=== PATIENT | female | born 1950 | race Caucasian/White ===

== ENCOUNTER → 2023-08-02 11:51 | Outpatient (CLI) | payer MEDICARE, MEDICAID, SELFPAY ==
--- NOTE | 2023-08-02 | DI.US.S_ITS ---
PROCEDURE: US PERIPH VENOUS LOW EXTREM LT INDICATIONS: LEFT FOOT AND LEG PAIN, SWELLING TECHNIQUE: Real-time imaging, as well as color and pulse Doppler interrogation, were performed of the lower extremity deep veins from the inguinal ligament to the popliteal fossa, with documentation of the visualized calf veins. COMPARISON: None. FINDINGS: The common femoral, femoral, popliteal, and the visualized calf veins are normally compressible, and free of intraluminal thrombus. Color and pulse Doppler demonstrate normal phasic intraluminal flow. There is normal augmentation response to distal compression maneuver. IMPRESSION: No findings of lower extremity deep venous thrombosis. Dictated by: Jesús Mejía M.D. on 08/02/2023 at 13:27 Approved by: Jesús Mejía M.D. on 08/02/2023 at 13:27
== END ==
PROVIDERS: PCP Family Medicine; Referring Provider Family Medicine; Visit Provider Family Medicine
DX: M79.672 Pain in left foot (principal); R22.42 Localized swelling, mass and lump, left lower limb
CPT/HCPCS: 93971

== ENCOUNTER 2024-10-26 13:49 | Emergency (ER) | payer MEDICARE, MEDICAID, SELFPAY ==
[2024-10-26 13:55] VITALS: BP 161/84; PULSE 100; RESP 16; TEMP 36.4; O2SAT 97; BMI 29.9
[2024-10-26] MEDS: COLCHICINE 0.6 MG TABLET 1.2 MG PO (14:41)
[2024-10-26] MEDS: cephALEXin 250 MG CAPSULE 500 MG PO (14:41)
[2024-10-26 14:43] VITALS: BP 179/87; PULSE 83; RESP 16; O2SAT 98
--- NOTE | 2024-10-26 14:47 | ED.EXTPRO ---
HPI - Extremity Problem <Radha Pearce PA-C - Last Filed: 10/26/24 15:02> General Chief complaint: Extremity Problem,Nontraumatic Stated complaint: px in LLE redness and swelling Time Seen by Provider: 10/26/24 14:20 Source: patient Mode of arrival: Family Vehicle History of Present Illness HPI Narrative: 74-year-old woman with a history of hypothyroid presents with concern for pain redness and swelling of her left toe joint. Patient states her symptoms started Sunday night she says she woke up in the middle of the night and she realized she had pain in her toe at the base of her great toe. Since that time the pain has persisted and worsened she says that it is sensitive to very light touch and the sheets have been bothering her at night with any pressure on the area. She noticed the redness seemed to be increasing and was evaluated by EMS today on [facility] where she lives and was told she should come to the emergency department here in [place] for further evaluation to rule out a blood infection. Patient denies any fevers chills nausea vomiting fatigue and states she has been in her usual state of health other than the pain in her left great toe joint. She denies any history of gout. She states she does sometimes eat fish especially salmon and does eat meats but does not remember specifically eating a lot of either of these recently. She does not drink alcohol. She denies any injury to this toe although notes that last week when she was stretching a couple of different times it popped she says this was not painful at all when it happened. Related Data Home Medications Medication Instructions Recorded Confirmed clobetasol 0.05 % topical ointment 0.05 % topical DIRECTED ##0 11/19/12 10/26/24 conjugated estrogens 0.625 mg/gram 1 applic vaginal DIRECTED 10/26/24 10/26/24 vaginal cream (Premarin) levothyroxine 137 mcg tablet 137 mcg PO DAILY 10/26/24 10/26/24 spironolactone 25 mg tablet 25 mg PO DAILY 10/26/24 10/26/24 Previous Rx's Medication Instructions Recorded cephalexin 500 mg capsule 500 mg PO TID 7 days #21 caps 10/26/24 colchicine 0.6 mg tablet 0.6 mg PO BID gout flare 14 days 10/26/24 #28 tabs Allergies Allergy/AdvReac Type Severity Reaction Status Date / Time Sulfa (Sulfonamide Allergy Mild Verified 10/26/24 14:33 Antibiotics) Review of Systems <Radha Pearce PA-C - Last Filed: 10/26/24 15:02> Review of Systems Narrative: See HPI Exam <Radha Pearce PA-C - Last Filed: 10/26/24 15:02> Narrative Exam Narrative: GENERAL: [74] year old patient appears stated age. Well-developed patient, in mild distress. HEAD: Atraumatic. Normocephalic. EYES: Pupils equal round and reactive. Extraocular motions intact. No scleral icterus. No injection or drainage. ENT: Nose without bleeding, purulent drainage. Throat without erythema, tonsillar hypertrophy or exudate. Airway patent. NECK: Trachea midline. Non tender CARDIOVASCULAR: Regular rate and rhythm RESPIRATORY: No increased work of breathing or respiratory distress GASTROINTESTINAL: Abdomen nondistended. EXTREMITIES: There is erythema, mild swelling and exquisite tenderness about the great toe joint of the left foot. Patient was able to move the great toe but it is painful for her. There is no evidence of broken skin puncture or trauma to the plantar surface or between the toes. The area of erythema does extend slightly about 3 cm towards the mid foot on the dorsal aspect of the foot. The calf is nontender without swelling. There is no edema noted. No edema or joint tenderness. NEURO: AOx3. SKIN: No rash or erythema of visible areas Initial Vital Signs Initial Vital Signs: Vital Signs Temperature 97.6 F 10/26/24 13:55 Pulse Rate 100 H 10/26/24 13:55 Respiratory Rate 16 10/26/24 13:55 Blood Pressure 161/84 H 10/26/24 13:55 Pulse Oximetry 97 10/26/24 13:55 Oxygen Delivery Method Room Air 10/26/24 13:55 <Madalyn Soliman DO - Last Filed: 10/27/24 07:06> Initial Vital Signs Initial Vital Signs: Vital Signs Temperature 97.6 F 10/26/24 13:55 Pulse Rate 100 H 10/26/24 13:55 Respiratory Rate 16 10/26/24 13:55 Blood Pressure 161/84 H 10/26/24 13:55 Pulse Oximetry 97 10/26/24 13:55 Oxygen Delivery Method Room Air 10/26/24 13:55 Course <Radha Pearce PA-C - Last Filed: 10/26/24 15:02> Orders Ordered: Discontinued Medications Cephalexin HCl (Cephalexin 250 Mg Capsule) 500 mg PO NOW ONE Stop: 10/26/24 14:38 Last Admin: 10/26/24 14:41 Dose: 500 mg Documented By: SAEED Colchicine (Colchicine 0.6 Mg Tablet) 1.2 mg PO NOW ONE Stop: 10/26/24 14:32 Last Admin: 10/26/24 14:41 Dose: 1.2 mg Documented By: RL Vital Signs Vital signs: Vital Signs - 8 hr 10/26/24 13:55 10/26/24 14:43 Temperature 97.6 F Pulse Rate 100 H 83 Respiratory Rate 16 16 Blood Pressure 161/84 H 179/87 H Pulse Oximetry 97 98 Oxygen Delivery Method Room Air Room Air <Madalyn Soliman DO - Last Filed: 10/27/24 07:06> Orders Ordered: Discontinued Medications Cephalexin HCl (Cephalexin 250 Mg Capsule) 500 mg PO NOW ONE Stop: 10/26/24 14:38 Last Admin: 10/26/24 14:41 Dose: 500 mg Documented By: SAEED Colchicine (Colchicine 0.6 Mg Tablet) 1.2 mg PO NOW ONE Stop: 10/26/24 14:32 Last Admin: 10/26/24 14:41 Dose: 1.2 mg Documented By: RL Vital Signs Vital signs: Vital Signs - 8 hr 10/26/24 13:55 10/26/24 14:43 Temperature 97.6 F Pulse Rate 100 H 83 Respiratory Rate 16 16 Blood Pressure 161/84 H 179/87 H Pulse Oximetry 97 98 Oxygen Delivery Method Room Air Room Air MDM - Extremity (Nontraumatic) <Radha Pearce PA-C - Last Filed: 10/26/24 15:02> Differential Diagnosis Differential diagnosis: Likely gout, cellulitis and other Medical Records Attestation: I reviewed the patient's medical records. MDM Narrative Medical decision making narrative: This is a 74-year-old woman presenting with concern for pain in her base left great toe joint with associated redness and mild swelling since [place] night. No injury. Patient has no concerning history or vitals suggestive of sepsis. Exam is most consistent with gout the patient has not had this previously. We discussed options together and ultimately she is prescribed colchicine, she is not a candidate for steroids as she has had a bad reaction to them in the past, also can not take NSAIDs per her MD due to her other medication (spironolactone). Reviewed colchicine interaction program checker [email or web address] and there is no interaction with spironolactone. Patient received her 1st dose of 1.2 mg here in the emergency department today and prescription ongoing for 0.6 mg b.i.d. advised to stop taking this 3 days after her symptoms resolve. As there was some mild redness also at the dorsal base of the toe (from MTP joint stretching slightly towards the mid foot) and patient has no known history of gout do also prescribe antibiotics as a precaution in case there is a component of developing localized cellulitis. Not suspicious for septic joint. First dose today of cephalexin in the emergency department and 7 day course prescribed. The area of erythema was demarcated with a skin pen. Patient will attempt to see her PCP in the next day or 2 for recheck. She is advised regarding return precautions, ED precautions, all questions answered. Discharge Plan Departure Patient Disposition: Home Clinical Impression: Gout Qualifiers: Gout site: toe Gout etiology: unspecified cause Chronicity: acute Laterality: left Qualified Code(s): M10.9 - Gout, unspecified Activity Restrictions/Additional Instructions: *You have been diagnosed with [gout] *What to do: *Please continue to take your regular medications as directed. [2 ] New medication prescriptions sent to your pharmacy: [Colchicine, cephalexin] [ ] New medication written as a paper prescription [ ] No new medications given *Please follow up with your primary care provider in 2-3 days, call for an appointment. Let them know you were seen in the Emergency Department and that we ask that you be seen in follow up. We will electronically transmit a record of today's note if your PCP is in our system. You came in today with concern for redness swelling and pain centered at the base of your left great toe. Based on your exam history and vitals this finding is most consistent with gout. You do not have a previous diagnosis of this, and for that reason I did also prescribe antibiotics in the event that this could be a early cellulitis. The other alternatives to help treat gout are not available to you as you can not take NSAIDs or steroid medications. However colchicine should be okay for you, I reviewed it with your spironolactone medication in a medication interaction sales store checker and it showed no flags. We gave you the 1st dose of colchicine in the emergency department today. Please molded goods spot picker your prescriptions 1st thing in the morning. And from then you will take the colchicine twice daily about 12 hours apart until 3 days after your symptoms resolve. I am prescribing it for 2 weeks but stop taking it about 3 days after symptoms improve. We also gave you your 1st dose of antibiotic today in the emergency department. Please take this 1st thing in the morning as well. If you do develop streaking redness up into your ankle and or huang/leg or develop fevers chills or other symptoms that might suggest an infection please make sure you seek immediate re-evaluation. Do recommend you follow up with your PCP tomorrow for recheck if possible. *If you do not have a primary care provider please contact the [facility] Resource line at [phone]. They will ask some questions about your medical history and help get you set up with a doctor in the community. *Return to Emergency Department if you should have any new, worsening or concerning symptoms, such as [fever greater than 101 F, shaking chills, worsening pain, persistent vomiting or other bothersome symptoms] Prescriptions: New colchicine 0.6 mg tablet 0.6 mg PO BID 14 Days Qty: 28 0RF cephalexin 500 mg capsule 500 mg PO TID 7 Days Qty: 21 0RF No Action clobetasol 0.05 % ointment 0.05 % Topical DIRECTED Qty: 0 levothyroxine 137 mcg tablet 137 mcg PO DAILY spironolactone 25 mg tablet 25 mg PO DAILY Premarin 0.625 mg/gram cream 1 applic vaginal DIRECTED Referrals: Parmjit Joya MD [Primary Care Provider] - Stand Alone Forms: Patient Portal/API/Survey ED Sign-out <Madalyn Soliman DO - Last Filed: 10/27/24 07:06> Cosign ED Attending [place] iselaature Attestation: I was available for consultation.
== END 2024-10-26 14:46 | disposition home or self-care (01) ==
PROVIDERS: Emergency Provider Student in an Organized Health Care Education/Training Program; PCP Family Medicine
DX: M10.9 Gout, unspecified (principal); X58.XXXA Exposure to other specified factors, initial encounter
CPT/HCPCS: 99283